=== PATIENT | male | born 1975 | race Caucasian/White ===

== ENCOUNTER → 2018-09-25 08:28 | Outpatient (CLI) | payer OTHER, SELFPAY | PROVIDERS: Family Provider Family Medicine; PCP Student in an Organized Health Care Education/Training Program; Visit Provider Physician Assistant | DX: J02.9 Acute pharyngitis, unspecified (principal) | CPT/HCPCS: 87070 ==

== ENCOUNTER 2018-09-26 16:56 | Emergency (ER) | payer OTHER, SELFPAY ==
--- NOTE | 2018-09-26 17:04 | DI.CT.S_ITS ---
PROCEDURE: CT SOFT TISSUE NECK W CON INDICATIONS: severe upper airway swelling, soft palate edema TECHNIQUE: After the administration of intravenous contrast, 3.0 mm axial sections acquired from the sella to the aortic arch. Additional oblique axial 3.0 mm sections acquired through the pharynx. 3 mm thick coronal and sagittal reformats were generated. For radiation dose reduction, the following was used: automated exposure control. COMPARISON: None. FINDINGS: Image quality: Excellent. Lymph nodes: No enlarged lymph nodes seen throughout the neck by size criteria. Bilateral subcentimeter level II lymph nodes are noted measures up to 7 mm in short axis diameter. Vessels: Visualized vasculature appears patent. Neck spaces: There is diffuse enlargement of parapharyngeal tonsils particularly involving right palatine tonsil with right worse than left bilateral oral pharyngeal and pharyngeal soft tissue swelling and asymmetric right-sided pharyngeal airway narrowing. Ill-defined hypodensities are seen within right parapharyngeal tonsil measures up to 6 x 9 mm in size suggestive of right-sided tonsil abscess. The vocal cords, false vocal cords, pyriform sinuses, epiglottis, vallecula, and tongue base all appear normal. Extramucosal spaces appear unremarkable. Glands: The parotid and submandibular glands appear normal. Thyroid gland is within normal limits. Miscellaneous: Visualized brain and orbits appear normal. Lung apices appear clear. Superficial soft tissues appear normal. Bones: No suspicious bony lesions. Visualized sinuses and mastoids appear unremarkable. IMPRESSION: 1. Findings suggestive of parapharyngeal tonsillitis with small right parapharyngeal tonsil abscess collections. Mild asymmetric right pharyngeal airway narrowing. 2. Rest of the airway is patent. No gross neck soft tissue adenopathy. Dictated by: Luis Manuel Thornton M.D. on 09/26/2018 at 18:30 Approved by: Luis Manuel Thornton M.D. on 09/26/2018 at 18:43
[2018-09-26 17:19] VITALS: BP 138/95; PULSE 73; RESP 18; TEMP 37.1; O2SAT 99
[2018-09-26 17:24] LABS: Add Manual Diff / Slide Review NO; Basophils Percent Auto 0.3 % (0-2); Eosinophils Percent Auto 0.5 % (2-4); Hematocrit 45.7 % (41-53); Hemoglobin 15.2 g/dL (13.5-17.5); Lymphocytes Percent Auto 15.8 % (25-40); Mean Corpuscular HGB Conc 33.3 % (30-36); Mean Corpuscular Hemoglobin 32.2 PG (26-34); Mean Corpuscular Volume 96.6 fL (80-100); Monocytes Percent Auto 8.4 % (3-14); Neutrophils Absolute Auto 10200 /uL (3000-5900); Platelet Count 269 X10^3/uL (150-400); Red Blood Cell Count 4.74 X10^6/uL (4.5-5.9); White Blood Cell Count 13.6 X10^3/uL (4.5-11.0)
--- NOTE | 2018-09-26 17:25 | ED.GENADULT ---
HPI - General Adult General Stated complaint: THROAT PROBLEM HARD TIME BREATHING Time Seen by Provider: 09/26/18 16:58 Source: patient Mode of arrival: ambulatory Limitations: no limitations History of Present Illness HPI narrative: 43-year-old smoking male presents from walk-in clinic for evaluation of worsening throat problem. The patient had a sore throat and went to the walk-in clinic yesterday and had a negative strep test. He was discharged home on symptomatic treatment and continued to worsen. This afternoon the patient started developing significant difficulty with swallowing and trouble controlling his secretions. He has a loss of voice and denies other symptoms such as runny nose or cough. Denies any fever nor nausea or vomiting. He takes no antihypertensives and denies any history of the same. Onset (ago): hour(s) Severity: severe Associated symptoms: shortness of breath Treatments prior to arrival: cold therapy Related Data Previous Rx's Medication Instructions Recorded amoxicillin-pot clavulanate 1 tab PO BID #20 tab 09/26/18 [Augmentin] Review of Systems Review of Systems All systems reviewed & are unremarkable except as noted in HPI and below Constitutional Denies chills, Denies fever(s), Denies lethargy and Denies weakness Eyes Denies change in vision, Denies eye discharge, Denies irritation and Denies loss of vision ENT Ears, Nose, Mouth, and Throat: Denies change in voice, Reports neck pain, Reports sore throat and Reports throat swelling Cardiovascular Denies chest pain, Denies irregular heart rhythm, Denies lightheadedness, Denies palpitations, Reports dyspnea, Denies dyspnea on exertion and Denies orthopnea Respiratory Denies cough, Reports dyspnea, Denies dyspnea on exertion and Denies wheezing Gastrointestinal Gastrointestinal: Denies abdominal pain, Denies change in bowel habits, Denies diarrhea, Denies nausea and Denies vomiting Genitourinary Denies hematuria, Denies flank pain, Denies urinary incontinence and Denies urinary urgency Musculoskeletal Reports neck pain Integumentary/Breasts Denies pruritus, Denies erythema, Denies rash and Denies wounds Neurologic Denies confusion, Denies loss of vision and Denies weakness Psychiatric Denies anxiety, Denies confusion, Denies depression, Denies homicidal ideation and Denies suicidal ideation Endocrine Denies palpitations Hematologic/Lymphatic Denies easy bruising Allergic/Immunologic Reports throat swelling and Denies wheezing PFSH Social History Smoking Status: Current every day smoker Exam Narrative Exam Narrative: 43-year-old male obvious distress with change in voice, and trouble swallowing Initial Vital Signs Initial Vital Signs: Vital Signs Temperature 98.8 F 09/26/18 17:19 Pulse Rate 73 09/26/18 17:19 Respiratory Rate 18 09/26/18 17:19 Blood Pressure 138/95 H 09/26/18 17:19 Pulse Oximetry 99 09/26/18 17:19 Const General: cooperative and well developed Nutritional Appearance: well nourished Orientation: alert, awake, oriented x3 and not confused HENMT Head: normocephalic and atraumatic Ears: external ears normal and TM's normal bilaterally Nose: external nose normal and No nasal discharge Face and sinus: sinuses nontender, face symmetric, no sinus tenderness and No dry mucous membranes Mouth: oral mucosae normal and moist mucous membranes Teeth and gingiva: dentition normal Throat: other (patient has posterior pharynx swelling, R>L, patent airway) Eyes General: appearance normal, both eyes and all related structures Eyelids: eyelids normal Conjunctivae: conjunctivae normal Sclera: sclerae normal Pupils: PERRL EOM: EOM intact bilaterally Neck Neck: normal visual inspection, trachea midline, lymphadenopathy, No midline deformity and No JVD Lymphatic: No lymphedema Chest Chest: normal inspection of the chest Cardio Rate: regular rate Rhythm: regular rhythm Heart Sounds: no click, no gallops, no murmurs and no rubs Pulses: normal peripheral pulses Back/Spine/Pelvis Back: No CVA tenderness Cervical Spine: cervical ROM normal and No pain with cervical ROM Thoracic/Lumbar Spine: thoracic and lumbar spine normal to inspection Neuro General: alert, oriented x3, gait normal and no focal motor deficits Speech: speech normal Extrem General: full ROM, no clubbing, cyanosis or edema, no pedal edema and no calf tenderness Course Orders Ordered: ED Orders 09/26/18 17:04 CT soft tissue neck w con Stat 09/26/18 17:10 Basic Metabolic Panel Stat Complete Blood Count AUTO DIFF Stat Lactate (Lactic Acid) Stat Procalcitonin Stat 09/26/18 17:27 Blood Culture Stat Discontinued Medications Dexamethasone 20 mg/ Sodium (Chloride) 52 mls @ 208 mls/hr IV NOW ONE Stop: 09/26/18 17:05 Last Infusion: 09/26/18 18:03 Dose: 0 mls/hr Admin: 09/26/18 17:28 Dose: 208 mls/hr Sodium Chloride (Normal Saline 0.9%) 1,000 mls @ 1,000 mls/hr IV BOLUS ONE Stop: 09/26/18 18:03 Last Admin: 09/26/18 17:28 Dose: 1,000 mls/hr Ampicillin Sodium/Sulbactam (Sodium 3 gm/ Sodium Chloride) 100 mls @ 100 mls/hr IV NOW ONE Stop: 09/26/18 17:05 Last Infusion: 09/26/18 19:21 Dose: 0 mls/hr Admin: 09/26/18 18:02 Dose: 100 mls/hr Reevaluation(s) Reevaluation #1: Patient is feeling better after above therapies. He is controlling his secretions more appropriately and feeling lessAngst. He is speaking much more clearly Vital Signs - 8 hr 09/26/18 17:19 Temperature 98.8 F Pulse Rate 73 Respiratory Rate 18 Blood Pressure 138/95 H Pulse Oximetry 99 Medical Decision Making Medical Records Medical records reviewed: Yes I reviewed the patient's medical records. Lab Data Lab results reviewed: Yes I reviewed the patient's lab results. Result diagrams: 09/26/18 17:10 09/26/18 17:10 Lab Results 09/26/18 09/26/18 09/26/18 Range/Units 17:10 17:10 17:10 WBC 13.6 H (4.5-11.0) X10^3/uL RBC 4.74 (4.5-5.9) X10^6/uL Hgb 15.2 (13.5-17.5) g/dL Hct 45.7 (41-53) % MCV 96.6 (80-100) fL MCH 32.2 (26-34) PG MCHC 33.3 (30-36) % RDW 13.0 (11.6-14.8) % Plt Count 269 (150-400) X10^3/uL Neut % (Auto) 75.0 (50-75) % Lymph % (Auto) 15.8 L (25-40) % [place] % (Auto) 8.4 (3-14) % Eos % (Auto) 0.5 L (2-4) % Baso % (Auto) 0.3 (0-2) % Neut # (Auto) 22398 H (9160-0580) /uL Sodium 145 (137-145) mmol/L Potassium 3.7 (3.4-5.1) mmol/L Chloride 102 (98-107) mmol/L Carbon Dioxide 28 (22-32) mmol/L BUN 16 (9-20) mg/dL Creatinine 0.90 (0.66-1.25) mg/dL Estimated GFR > 60.0 (>60) mL/min BUN/Creatinine Ratio 17.8 (6-22) Glucose 92 (70-100) mg/dL Lactate 1.2 (0.7-2.1) mmol/L Calcium 9.4 (8.4-10.2) mg/dL Procalcitonin (<0.5) ng/mL 09/26/18 Range/Units 17:10 WBC (4.5-11.0) X10^3/uL RBC (4.5-5.9) X10^6/uL Hgb (13.5-17.5) g/dL Hct (41-53) % MCV (80-100) fL MCH (26-34) PG MCHC (30-36) % RDW (11.6-14.8) % Plt Count (150-400) X10^3/uL Neut % (Auto) (50-75) % Lymph % (Auto) (25-40) % [place] % (Auto) (3-14) % Eos % (Auto) (2-4) % Baso % (Auto) (0-2) % Neut # (Auto) (7996-9276) /uL Sodium (137-145) mmol/L Potassium (3.4-5.1) mmol/L Chloride (98-107) mmol/L Carbon Dioxide (22-32) mmol/L BUN (9-20) mg/dL Creatinine (0.66-1.25) mg/dL Estimated GFR (>60) mL/min BUN/Creatinine Ratio (6-22) Glucose (70-100) mg/dL Lactate (0.7-2.1) mmol/L Calcium (8.4-10.2) mg/dL Procalcitonin < 0.05 (<0.5) ng/mL Imaging Data Soft Tissue Neck CT: Radiologist's impression: [address] [address] [address] Scan Report Signed Patient: AGUS VILLAGRAN#: [id number] : 1975Acct:[id number] Age/Sex: 43 / MDate of Service: 09/26/18 Loc: ED Accession Number: [id number] Procedure: CT soft tissue neck w con Ordering Provider: Mir Norris D.O. PROCEDURE: CT SOFT TISSUE NECK W CON INDICATIONS: severe upper airway swelling, soft palate edema TECHNIQUE: After the administration of intravenous contrast, 3.0 mm axial sections acquired from the sella to the aortic arch. Additional oblique axial 3.0 mm sections acquired through the pharynx. 3 mm thick coronal and sagittal reformats were generated. For radiation dose reduction, the following was used: automated exposure control. COMPARISON: None. FINDINGS: Image quality: Excellent. Lymph nodes: No enlarged lymph nodes seen throughout the neck by size criteria. Bilateral subcentimeter level II lymph nodes are noted measures up to 7 mm in short axis diameter. Vessels: Visualized vasculature appears patent. Neck spaces: There is diffuse enlargement of parapharyngeal tonsils particularly involving right palatine tonsil with right worse than left bilateral oral pharyngeal and pharyngeal soft tissue swelling and asymmetric right-sided pharyngeal airway narrowing. Ill-defined hypodensities are seen within right parapharyngeal tonsil measures up to 6 x 9 mm in size suggestive of right-sided tonsil abscess. The vocal cords, false vocal cords, pyriform sinuses, epiglottis, vallecula, and tongue base all appear normal. Extramucosal spaces appear unremarkable. Glands: The parotid and submandibular glands appear normal. Thyroid gland is within normal limits. Miscellaneous: Visualized brain and orbits appear normal. Lung apices appear clear. Superficial soft tissues appear normal. Bones: No suspicious bony lesions. Visualized sinuses and mastoids appear unremarkable. IMPRESSION: 1. Findings suggestive of parapharyngeal tonsillitis with small right parapharyngeal tonsil abscess collections. Mild asymmetric right pharyngeal airway narrowing. 2. Rest of the airway is patent. No gross neck soft tissue adenopathy. Dictated by: Luis Manuel Thornton M.D. on 09/26/2018 at 18:30 Approved by: Luis Manuel Thornton M.D. on 09/26/2018 at 18:43 [facility] Narrative Medical decision making narrative: 43-year-old otherwise healthy male presents for evaluation difficulty swallowing with possible airway compromise. On exam he has a patent airway and is largely controlling his secretions. CT shows a small peritonsillar abscess with patent airways. Patient feels better after above-stated therapies. He will follow up closely with her Nose and Throat, calling Saturday morning and has full understanding of return precautions and has verbalized this understanding Discharge Plan Departure Patient Disposition: Home Clinical Impression: Abscess, peritonsillar Instructions: DI for Peritonsillar Abscess -- Adult Activity Restrictions/Additional Instructions: *You have been diagnosed with [ acute peritonsillar abscess ] *What to do: *Take medications as directed *Follow up with ear nose and throat, call for an appointment 1st thing on Saturday. Let them know you were seen in the Emergency Department and that we ask that you be seen in follow up *Return to ER if you should have any new, worsening or concerning symptoms, such as [worsening breathing, inability to eat or drink, inability to swallow pills, other bothersome symptoms ] Prescriptions: New amoxicillin-pot clavulanate [Augmentin] 875-125 mg tablet 1 tab PO BID Qty: 20 RF: 0 Referrals: Jose F Ojeda MD [Physician] -
[2018-09-26] MEDS: SODIUM CHLORIDE 0.9% 1,000 ML 1000 ML IV (17:28)
[2018-09-26] MEDS: DEXAMETHASONE 20 MG in SODIUM CHLORIDE 0.9% 50 ML 208 ML IV (17:28)
--- NOTE | 2018-09-26 17:30 | ED_ITS ---
HPI - General Adult General Stated complaint: THROAT PROBLEM HARD TIME BREATHING Time Seen by Provider: 09/26/18 16:58 Source: patient Mode of arrival: ambulatory Limitations: no limitations History of Present Illness HPI narrative: 43-year-old smoking male presents from walk-in clinic for evaluation of worsening throat problem. The patient had a sore throat and went to the walk-in clinic yesterday and had a negative strep test. He was discharged home on symptomatic treatment and continued to worsen. This afternoon the patient started developing significant difficulty with swallowing and trouble controlling his secretions. He has a loss of voice and denies other symptoms such as runny nose or cough. Denies any fever nor nausea or vomiting. He takes no antihypertensives and denies any history of the same. Onset (ago): hour(s) Severity: severe Associated symptoms: shortness of breath Treatments prior to arrival: cold therapy Related Data Previous Rx's Medication Instructions Recorded amoxicillin-pot clavulanate 1 tab PO BID #20 tab 09/26/18 [Augmentin] Review of Systems Review of Systems All systems reviewed & are unremarkable except as noted in HPI and below Constitutional Denies chills, Denies fever(s), Denies lethargy and Denies weakness Eyes Denies change in vision, Denies eye discharge, Denies irritation and Denies loss of vision ENT Ears, Nose, Mouth, and Throat: Denies change in voice, Reports neck pain, Reports sore throat and Reports throat swelling Cardiovascular Denies chest pain, Denies irregular heart rhythm, Denies lightheadedness, Denies palpitations, Reports dyspnea, Denies dyspnea on exertion and Denies orthopnea Respiratory Denies cough, Reports dyspnea, Denies dyspnea on exertion and Denies wheezing Gastrointestinal Gastrointestinal: Denies abdominal pain, Denies change in bowel habits, Denies diarrhea, Denies nausea and Denies vomiting Genitourinary Denies hematuria, Denies flank pain, Denies urinary incontinence and Denies urinary urgency Musculoskeletal Reports neck pain Integumentary/Breasts Denies pruritus, Denies erythema, Denies rash and Denies wounds Neurologic Denies confusion, Denies loss of vision and Denies weakness Psychiatric Denies anxiety, Denies confusion, Denies depression, Denies homicidal ideation and Denies suicidal ideation Endocrine Denies palpitations Hematologic/Lymphatic Denies easy bruising Allergic/Immunologic Reports throat swelling and Denies wheezing PFSH Social History Smoking Status: Current every day smoker Exam Narrative Exam Narrative: 43-year-old male obvious distress with change in voice, and trouble swallowing Initial Vital Signs Initial Vital Signs: Vital Signs Temperature 98.8 F 09/26/18 17:19 Pulse Rate 73 09/26/18 17:19 Respiratory Rate 18 09/26/18 17:19 Blood Pressure 138/95 H 09/26/18 17:19 Pulse Oximetry 99 09/26/18 17:19 Const General: cooperative and well developed Nutritional Appearance: well nourished Orientation: alert, awake, oriented x3 and not confused HENMT Head: normocephalic and atraumatic Ears: external ears normal and TM's normal bilaterally Nose: external nose normal and No nasal discharge Face and sinus: sinuses nontender, face symmetric, no sinus tenderness and No dry mucous membranes Mouth: oral mucosae normal and moist mucous membranes Teeth and gingiva: dentition normal Throat: other (patient has posterior pharynx swelling, R>L, patent airway) Eyes General: appearance normal, both eyes and all related structures Eyelids: eyelids normal Conjunctivae: conjunctivae normal Sclera: sclerae normal Pupils: PERRL EOM: EOM intact bilaterally Neck Neck: normal visual inspection, trachea midline, lymphadenopathy, No midline deformity and No JVD Lymphatic: No lymphedema Chest Chest: normal inspection of the chest Cardio Rate: regular rate Rhythm: regular rhythm Heart Sounds: no click, no gallops, no murmurs and no rubs Pulses: normal peripheral pulses Back/Spine/Pelvis Back: No CVA tenderness Cervical Spine: cervical ROM normal and No pain with cervical ROM Thoracic/Lumbar Spine: thoracic and lumbar spine normal to inspection Neuro General: alert, oriented x3, gait normal and no focal motor deficits Speech: speech normal Extrem General: full ROM, no clubbing, cyanosis or edema, no pedal edema and no calf tenderness Course Orders Ordered: ED Orders 09/26/18 17:04 CT soft tissue neck w con Stat 09/26/18 17:10 Basic Metabolic Panel Stat Complete Blood Count AUTO DIFF Stat Lactate (Lactic Acid) Stat Procalcitonin Stat 09/26/18 17:27 Blood Culture Stat Discontinued Medications Dexamethasone 20 mg/ Sodium (Chloride) 52 mls @ 208 mls/hr IV NOW ONE Stop: 09/26/18 17:05 Last Infusion: 09/26/18 18:03 Dose: 0 mls/hr Admin: 09/26/18 17:28 Dose: 208 mls/hr Sodium Chloride (Normal Saline 0.9%) 1,000 mls @ 1,000 mls/hr IV BOLUS ONE Stop: 09/26/18 18:03 Last Admin: 09/26/18 17:28 Dose: 1,000 mls/hr Ampicillin Sodium/Sulbactam (Sodium 3 gm/ Sodium Chloride) 100 mls @ 100 mls/ hr IV NOW ONE Stop: 09/26/18 17:05 Last Infusion: 09/26/18 19:21 Dose: 0 mls/hr Admin: 09/26/18 18:02 Dose: 100 mls/hr Reevaluation(s) Reevaluation #1: Patient is feeling better after above therapies. He is controlling his secretions more appropriately and feeling lessAngst. He is speaking much more clearly Vital Signs - 8 hr 09/26/18 17:19 Temperature 98.8 F Pulse Rate 73 Respiratory Rate 18 Blood Pressure 138/95 H Pulse Oximetry 99 Medical Decision Making Medical Records Medical records reviewed: Yes I reviewed the patient's medical records. Lab Data Lab results reviewed: Yes I reviewed the patient's lab results. Result diagrams: 09/26/18 17:10 09/26/18 17:10 Lab Results 09/26/18 09/26/18 09/26/18 Range/Units 17:10 17:10 17:10 WBC 13.6 H (4.5-11.0) X10^3/uL RBC 4.74 (4.5-5.9) X10^6/uL Hgb 15.2 (13.5-17.5) g/dL Hct 45.7 (41-53) % MCV 96.6 (80-100) fL MCH 32.2 (26-34) PG MCHC 33.3 (30-36) % RDW 13.0 (11.6-14.8) % Plt Count 269 (150-400) X10^3/uL Neut % (Auto) 75.0 (50-75) % Lymph % (Auto) 15.8 L (25-40) % [place] % (Auto) 8.4 (3-14) % Eos % (Auto) 0.5 L (2-4) % Baso % (Auto) 0.3 (0-2) % Neut # (Auto) 88052 H (7724-9858) /uL Sodium 145 (137-145) mmol/L Potassium 3.7 (3.4-5.1) mmol/L Chloride 102 (98-107) mmol/L Carbon Dioxide 28 (22-32) mmol/L BUN 16 (9-20) mg/dL Creatinine 0.90 (0.66-1.25) mg/dL Estimated GFR > 60.0 (>60) mL/min BUN/Creatinine Ratio 17.8 (6-22) Glucose 92 (70-100) mg/dL Lactate 1.2 (0.7-2.1) mmol/L Calcium 9.4 (8.4-10.2) mg/dL Procalcitonin (<0.5) ng/mL 09/26/18 Range/Units 17:10 WBC (4.5-11.0) X10^3/uL RBC (4.5-5.9) X10^6/uL Hgb (13.5-17.5) g/dL Hct (41-53) % MCV (80-100) fL MCH (26-34) PG MCHC (30-36) % RDW (11.6-14.8) % Plt Count (150-400) X10^3/uL Neut % (Auto) (50-75) % Lymph % (Auto) (25-40) % [place] % (Auto) (3-14) % Eos % (Auto) (2-4) % Baso % (Auto) (0-2) % Neut # (Auto) (0913-3307) /uL Sodium (137-145) mmol/L Potassium (3.4-5.1) mmol/L Chloride (98-107) mmol/L Carbon Dioxide (22-32) mmol/L BUN (9-20) mg/dL Creatinine (0.66-1.25) mg/dL Estimated GFR (>60) mL/min BUN/Creatinine Ratio (6-22) Glucose (70-100) mg/dL Lactate (0.7-2.1) mmol/L Calcium (8.4-10.2) mg/dL Procalcitonin < 0.05 (<0.5) ng/mL Imaging Data Soft Tissue Neck CT: Radiologist's impression: [address] [address] [address] Scan Report Signed Patient: AGUS VILLAGRAN#: [id number] : 1975Acct:[id number] Age/Sex: 43 / MDate of Service: 09/26/18 Loc: ED Accession Number: [id number] Procedure: CT soft tissue neck w con Ordering Provider: Mir Norris D.O. PROCEDURE: CT SOFT TISSUE NECK W CON INDICATIONS: severe upper airway swelling, soft palate edema TECHNIQUE: After the administration of intravenous contrast, 3.0 mm axial sections acquired from the sella to the aortic arch. Additional oblique axial 3.0 mm sections acquired through the pharynx. 3 mm thick coronal and sagittal reformats were generated. For radiation dose reduction, the following was used: automated exposure control. COMPARISON: None. FINDINGS: Image quality: Excellent. Lymph nodes: No enlarged lymph nodes seen throughout the neck by size criteria. Bilateral subcentimeter level II lymph nodes are noted measures up to 7 mm in short axis diameter. Vessels: Visualized vasculature appears patent. Neck spaces: There is diffuse enlargement of parapharyngeal tonsils particularly involving right palatine tonsil with right worse than left bilateral oral pharyngeal and pharyngeal soft tissue swelling and asymmetric right-sided pharyngeal airway narrowing. Ill-defined hypodensities are seen within right parapharyngeal tonsil measures up to 6 x 9 mm in size suggestive of right-sided tonsil abscess. The vocal cords, false vocal cords, pyriform sinuses, epiglottis, vallecula, and tongue base all appear normal. Extramucosal spaces appear unremarkable. Glands: The parotid and submandibular glands appear normal. Thyroid gland is within normal limits. Miscellaneous: Visualized brain and orbits appear normal. Lung apices appear clear. Superficial soft tissues appear normal. Bones: No suspicious bony lesions. Visualized sinuses and mastoids appear unremarkable. IMPRESSION: 1. Findings suggestive of parapharyngeal tonsillitis with small right parapharyngeal tonsil abscess collections. Mild asymmetric right pharyngeal airway narrowing. 2. Rest of the airway is patent. No gross neck soft tissue adenopathy. Dictated by: Luis Manuel Thornton M.D. on 09/26/2018 at 18:30 Approved by: Luis Manuel Thornton M.D. on 09/26/2018 at 18:43 [facility] Narrative Medical decision making narrative: 43-year-old otherwise healthy male presents for evaluation difficulty swallowing with possible airway compromise. On exam he has a patent airway and is largely controlling his secretions. CT shows a small peritonsillar abscess with patent airways. Patient feels better after above-stated therapies. He will follow up closely with her Nose and Throat, calling Saturday morning and has full understanding of return precautions and has verbalized this understanding Discharge Plan Departure Patient Disposition: Home Clinical Impression: Abscess, peritonsillar Instructions: DI for Peritonsillar Abscess -- Adult Activity Restrictions/Additional Instructions: *You have been diagnosed with [ acute peritonsillar abscess ] *What to do: *Take medications as directed *Follow up with ear nose and throat, call for an appointment 1st thing on Saturday. Let them know you were seen in the Emergency Department and that we ask that you be seen in follow up *Return to ER if you should have any new, worsening or concerning symptoms , such as [worsening breathing, inability to eat or drink, inability to swallow pills, other bothersome symptoms ] Prescriptions: New amoxicillin-pot clavulanate [Augmentin] 875-125 mg tablet 1 tab PO BID Qty: 20 RF: 0 Referrals: Jose F Ojeda MD [Physician] -
[2018-09-26 17:39] LABS: BUN Creatinine Ratio 17.8 (6-22); Blood Urea Nitrogen 16 mg/dL (9-20); Calcium 9.4 mg/dL (8.4-10.2); Carbon Dioxide 28 mmol/L (22-32); Chloride 102 mmol/L (98-107); Estimated Glomerular Filt Rate > 60.0 mL/min (>60); Glucose 92 mg/dL (70-100); HEMOLYSIS 21 (0-50); Potassium 3.7 mmol/L (3.4-5.1); Sodium 145 mmol/L (137-145)
[2018-09-26 17:47] LABS: Lactate (Lactic Acid) 1.2 mmol/L (0.7-2.1)
[2018-09-26 17:56] LABS: Procalcitonin < 0.05 ng/mL (<0.5)
[2018-09-26] MEDS: AMPICILLIN/SULBACTAM 3 GM 3 GM in SODIUM CHLORIDE 0.9% 100 ML IV (18:02)
[2018-09-26 19:48] VITALS: BP 129/83; PULSE 64; RESP 18; O2SAT 97
[2018-09-26 20:20] VITALS: BP 138/82; PULSE 72; RESP 18; O2SAT 99
== END 2018-09-26 20:20 | disposition home or self-care (01) ==
PROVIDERS: Emergency Provider Emergency Medicine
DX: J36 Peritonsillar abscess (principal)
CPT/HCPCS: 36415; 36591; 70491; 80048; 83605; 84145; 85025; 87040; 96361; 96365; 96366; 99283; 99285; J0295; J1100; Q9967

== ENCOUNTER 2018-09-28 09:56 | Emergency (ER) | payer OTHER, SELFPAY ==
[2018-09-28 10:07] VITALS: BP 129/86; PULSE 69; RESP 18; TEMP 36.9; O2SAT 93; BMI 31.5
--- NOTE | 2018-09-28 10:12 | PC.NURSE ---
on arrival , soft spoken but appropriate,spitting out mucous into the bag.
--- NOTE | 2018-09-28 11:00 | ED_ITS ---
HPI - URI/Sore Throat General Chief Complaint: Upper Respiratory Symptoms Stated Complaint: ABSCESS IN THROAT Time Seen by Provider: 09/28/18 10:30 Source: patient Mode of arrival: ambulatory Limitations: no limitations History of Present Illness HPI Narrative: The patient is a 43-year-old male with known peritonsillar abscess. He was seen twice last week by the walk-in clinic and on Saturday in the emergency department. He had his IV fluids dexamethasone and antibiotics. He said yesterday he was doing fine. However today he feels like he is spitting the as he can't swallow and hurts. He is able to speak to me at ease of without difficulty. He has not had fever or chills. He has been taking his antibiotics. He had apple sauce and yogurt today but then started having pain. Related Data Previous Rx's Medication Instructions Recorded triamcinolone acetonide [Nasacort] 2 puff INTRANASAL Q DAY #1 bot 09/28/16 beclomethasone dipropionate [Qvar] 1 puff INH BID #1 inh 07/24/17 prednisone 50 mg PO DAILY #5 tab 09/28/18 Allergies Allergy/AdvReac Type Severity Reaction Status Date / Time No Known Allergies Allergy Uncoded 09/26/18 16:33 Review of Systems Review of Systems All systems reviewed & are unremarkable except as noted in HPI and below Constitutional Denies chills, Denies fatigue, Denies fever(s) and Denies frequent falls ENT Ears, Nose, Mouth, and Throat: Reports system reviewed and no additional complaints, except as docu, Reports as per HPI and Denies dizziness Gastrointestinal Gastrointestinal: Denies abdominal pain, Denies change in bowel habits, Denies diarrhea, Denies nausea and Denies vomiting Musculoskeletal Denies numbness Integumentary/Breasts Denies pruritus, Denies erythema, Denies rash and Denies wounds Neurologic Denies behavioral changes, Denies confusion, Denies dizziness, Denies frequent falls and Denies numbness Psychiatric Denies behavioral changes and Denies confusion Endocrine Denies fatigue PFS Social History Smoking Status: Current every day smoker alcohol intake: current Exam Initial Vital Signs Initial Vital Signs: Vital Signs Temperature 98.4 F 09/28/18 10:07 Pulse Rate 69 09/28/18 10:07 Respiratory Rate 18 09/28/18 10:07 Blood Pressure 129/86 09/28/18 10:07 Pulse Oximetry 93 09/28/18 10:07 GENERAL: Well-appearing, well-nourished and in no acute distress. HEENT: Head atraumatic,EOMI, pupils reactive, face symmetric, moist mucous membranes PHARYNX: Pharynx is erythematous no uvula deviation no significant hard palate swelling. Airway is patent. No stridor CARDIOVASCULAR: Regular rate and rhythm without murmurs, rubs or gallops. RESPIRATORY: Breath sounds equal bilaterally, no wheezes rales or rhonchi. ABDOMEN: Soft, nontender. Normoactive bowel sounds all 4 quadrants. No guarding or rebound. EXTREMITIES: Normal range of motion, no clubbing or edema. Neurovascularly intact NEUROLOGICAL: Alert and oriented x4.Normal gait and speech. Cranial nerves II through XII grossly intact. SKIN: Warm, dry, no laceration, no petechiae, no rashes or lesions. Course Orders Ordered: ED Orders 09/28/18 10:45 Basic Metabolic Panel Stat Complete Blood Count AUTO DIFF Stat Discontinued Medications Ampicillin Sodium/Sulbactam (Sodium 3 gm/ Sodium Chloride) 100 mls @ 100 mls/ hr IV NOW ONE Stop: 09/28/18 10:57 Last Infusion: 09/28/18 13:09 Dose: 0 mls/hr Admin: 09/28/18 11:55 Dose: 100 mls/hr Dexamethasone 20 mg/ Sodium (Chloride) 55 mls @ 220 mls/hr IV NOW ONE Stop: 09/28/18 10:57 Last Infusion: 09/28/18 11:45 Dose: 0 mls/hr Admin: 09/28/18 11:26 Dose: 220 mls/hr Sodium Chloride (Normal Saline 0.9%) 1,000 mls @ 1,000 mls/hr IV BOLUS ONE Stop: 09/28/18 11:55 Last Infusion: 09/28/18 13:09 Dose: 1,000 mls/hr Admin: 09/28/18 11:26 Dose: 1,000 mls/hr Vital Signs - 8 hr 09/28/18 10:07 09/28/18 11:42 09/28/18 13:10 Temperature 98.4 F 97.2 F L Pulse Rate 69 59 L 69 Respiratory Rate 18 17 17 Blood Pressure 129/86 118/78 Blood Pressure [Left Arm] 144/83 H Pulse Oximetry 93 97 99 09/28/18 13:12 Temperature 97.8 F Pulse Rate 69 Respiratory Rate 17 Blood Pressure Blood Pressure [Left Arm] 118/78 Pulse Oximetry 99 MDM - URI/Sore Throat Medical Records Attestation: I reviewed the patient's medical records. Patient actually has 3 medical record numbers over the last 1 week. They have not yet been done by. I did review all of them. His CT does show a 6 x 9 mm peritonsillar abscess Lab Data Attestation: I reviewed the patient's lab results. Result diagrams: 09/28/18 10:45 09/28/18 10:45 Lab Results 09/28/18 09/28/18 Range/Units 10:45 10:45 WBC 14.9 H (4.5-11.0) X10^3/uL RBC 4.37 L (4.5-5.9) X10^6/uL Hgb 14.2 (13.5-17.5) g/dL Hct 42.1 (41-53) % MCV 96.2 (80-100) fL MCH 32.5 (26-34) PG MCHC 33.8 (30-36) % RDW 13.2 (11.6-14.8) % Plt Count 286 (150-400) X10^3/uL Neut % (Auto) 72.5 (50-75) % Lymph % (Auto) 17.3 L (25-40) % [place] % (Auto) 9.5 (3-14) % Eos % (Auto) 0.5 L (2-4) % Baso % (Auto) 0.2 (0-2) % Neut # (Auto) 37361 H (6092-6361) /uL Sodium 145 (137-145) mmol/L Potassium 3.8 (3.4-5.1) mmol/L Chloride 103 (98-107) mmol/L Carbon Dioxide 26 (22-32) mmol/L BUN 19 (9-20) mg/dL Creatinine 0.90 (0.66-1.25) mg/dL Estimated GFR > 60.0 (>60) mL/min BUN/Creatinine Ratio 21.1 (6-22) Glucose 93 (70-100) mg/dL Calcium 9.3 (8.4-10.2) mg/dL MDM Narrative Medical decision making narrative: Patient is able to swallow it is just painful. He is able to stand and walk without difficulty. I spoke with Dr. Ojeda, ENT in regards to patient's symptoms and test results. Understands that I do not see anything for drainage. This is his 2nd ED visit over the weekend for the same. He agrees to see patient in the clinic this week. Recommends prednisone at discharge. Discharge Plan Departure Patient Disposition: Home Clinical Impression: Peritonsillar cellulitis Discharge Date/Time: 09/28/18 13:11 Interventions: ED Discharge Assessment Last Done: 09/28/18 13:10 Instructions: DI for Peritonsillar Abscess -- Adult Activity Restrictions/Additional Instructions: *You have been diagnosed with peritonsillar abscess *What to do: Increase fluid intake *Continue to take medications as directed -prednisone at 50 mg once a day for 5 days-start tomorrow *Follow up with your primary care provider in 2-3 days, call Dr. Ojeda is office tomorrow to schedule follow-up appointment. I did discuss your case with him today. *Return to ER if you should have inability to swallow, difficulty breathing or any new, worsening or concerning symptoms Prescriptions: New prednisone 50 mg tablet 50 mg PO DAILY Qty: 5 RF: 0 No Action triamcinolone acetonide [Nasacort] 55 MCG/PUFF aerosol,spray 2 puff Intranasal Q DAY Qty: 1 RF: 5 beclomethasone dipropionate [Qvar] 80 MCG/PUFF aerosol 1 puff INH BID Qty: 1 RF: 5 Referrals: Luke Dexter MD [Primary Care Provider] - Jose F Ojeda MD [Physician] -
[2018-09-28 11:09] LABS: Add Manual Diff / Slide Review NO; Basophils Percent Auto 0.2 % (0-2); Eosinophils Percent Auto 0.5 % (2-4); Hematocrit 42.1 % (41-53); Hemoglobin 14.2 g/dL (13.5-17.5); Lymphocytes Percent Auto 17.3 % (25-40); Mean Corpuscular HGB Conc 33.8 % (30-36); Mean Corpuscular Hemoglobin 32.5 PG (26-34); Mean Corpuscular Volume 96.2 fL (80-100); Monocytes Percent Auto 9.5 % (3-14); Neutrophils Absolute Auto 10800 /uL (3000-5900); Neutrophils Percent Auto 72.5 % (50-75); Platelet Count 286 X10^3/uL (150-400); Red Blood Cell Count 4.37 X10^6/uL (4.5-5.9); Red Cell Distribution Width 13.2 % (11.6-14.8); White Blood Cell Count 14.9 X10^3/uL (4.5-11.0)
[2018-09-28 11:12] LABS: BUN Creatinine Ratio 21.1 (6-22); Blood Urea Nitrogen 19 mg/dL (9-20); Calcium 9.3 mg/dL (8.4-10.2); Carbon Dioxide 26 mmol/L (22-32); Chloride 103 mmol/L (98-107); Estimated Glomerular Filt Rate > 60.0 mL/min (>60); Glucose 93 mg/dL (70-100); HEMOLYSIS < 15 (0-50); Potassium 3.8 mmol/L (3.4-5.1); Sodium 145 mmol/L (137-145)
[2018-09-28] MEDS: DEXAMETHASONE 20 MG in SODIUM CHLORIDE 0.9% 50 ML 220 ML IV (11:26)
[2018-09-28] MEDS: SODIUM CHLORIDE 0.9% 1,000 ML 1000 ML IV (11:26)
[2018-09-28 11:42] VITALS: BP 144/83; PULSE 59; RESP 17; O2SAT 97
[2018-09-28] MEDS: AMPICILLIN/SULBACTAM 3 GM 3 GM in SODIUM CHLORIDE 0.9% 100 ML IV (11:55)
[2018-09-28 13:10] VITALS: BP 118/78; PULSE 69; RESP 17; TEMP 36.2; O2SAT 99
[2018-09-28 13:12] VITALS: BP 118/78; PULSE 69; RESP 17; TEMP 36.6; O2SAT 99
== END 2018-09-28 13:11 | disposition home or self-care (01) ==
PROVIDERS: Emergency Provider Emergency Medicine; PCP Student in an Organized Health Care Education/Training Program
DX: J36 Peritonsillar abscess (principal)
CPT/HCPCS: 80048; 85025; 96365; 96366; 99283; 99284; J0295; J1100

== ENCOUNTER → 2019-08-10 10:26 | Outpatient (CLI) | payer OTHER, SELFPAY ==
--- NOTE | 2019-08-10 10:28 | DI.RAD.S_ITS ---
PROCEDURE: XR CHEST 2V INDICATIONS: cough for over 1 month TECHNIQUE: 2 views of the chest were acquired. COMPARISON: [facility], , CHEST 2 VIEW, 08/19/2015, 8:58. FINDINGS: Surgical changes and devices: None. Lungs and pleura: Lungs are clear. No pleural effusions or pneumothorax. Mediastinum: Mediastinal contours are normal. Heart size is normal. Bones and chest wall: No suspicious bony abnormalities. Soft tissues appear unremarkable. IMPRESSION: Stable chest. No acute cardiopulmonary process is evident. Dictated by: Hua Alexis M.D. on 08/10/2019 at 9:47 Approved by: Hua Alexis M.D. on 08/10/2019 at 9:48
== END ==
PROVIDERS: PCP Student in an Organized Health Care Education/Training Program; Visit Provider Physician Assistant
DX: R05 Cough (principal)
CPT/HCPCS: 71046

== ENCOUNTER → 2019-09-04 12:07 | Outpatient (CLI) | payer OTHER, SELFPAY ==
--- NOTE | 2019-09-04 12:08 | DI.RAD.S_ITS ---
PROCEDURE: XR KNEE RT 3V INDICATIONS: pain, swelling, joint effusion, r/o arthritis TECHNIQUE: 3 views of the knee were acquired. COMPARISON: None. FINDINGS: Bones: No fractures or dislocations. No suspicious bony lesions. Soft tissues: No joint effusion. No suspicious soft tissue calcifications. IMPRESSION: No trauma. A definite joint effusion is not seen on the lateral view. Dictated by: Magen Ogden M.D. on 09/04/2019 at 12:32 Approved by: Magen Ogden M.D. on 09/04/2019 at 12:33
== END ==
PROVIDERS: Family Provider Student in an Organized Health Care Education/Training Program; PCP Student in an Organized Health Care Education/Training Program; Visit Provider Physician Assistant
DX: M25.561 Pain in right knee (principal)
CPT/HCPCS: 73562

== ENCOUNTER → 2019-10-15 06:57 | Outpatient (CLI) | payer OTHER, SELFPAY ==
[2019-10-15 08:05] LABS: Add Manual Diff / Slide Review NO; Basophils Absolute Auto 0 /uL (0-100); Basophils Percent Auto 0.4 % (0-2); Eosinophils Absolute Auto 100 /uL (0-450); Eosinophils Percent Auto 0.6 % (2-4); Hematocrit 41.6 % (41-53); Hemoglobin 14.7 g/dL (13.5-17.5); Lymphocytes Absolute Auto 1800 /uL (1100-4500); Lymphocytes Percent Auto 21.8 % (25-40); Mean Corpuscular HGB Conc 35.5 % (30-36); Mean Corpuscular Hemoglobin 33.4 PG (26-34); Mean Corpuscular Volume 94.3 fL (80-100); Monocytes Absolute Auto 700 /uL (0-900); Monocytes Percent Auto 8.8 % (3-14); Neutrophils Absolute Auto 5600 /uL (1500-7000); Neutrophils Percent Auto 68.4 % (50-75); Platelet Count 287 X10^3/uL (150-400); Red Blood Cell Count 4.41 X10^6/uL (4.5-5.9); Red Cell Distribution Width 12.7 % (11.6-14.8); White Blood Cell Count 8.1 X10^3/uL (4.5-11.0)
[2019-10-15 08:17] LABS: BUN Creatinine Ratio 24.4 (6-22); Blood Urea Nitrogen 22 mg/dL (9-20); Calcium 9.4 mg/dL (8.4-10.2); Carbon Dioxide 28 mmol/L (22-32); Chloride 104 mmol/L (98-107); Estimated Glomerular Filt Rate > 60.0 mL/min (>60); Glucose 103 mg/dL (70-100); HEMOLYSIS < 15 (0-50); Potassium 4.3 mmol/L (3.4-5.1); Sodium 141 mmol/L (137-145)
[2019-10-15 08:21] LABS: C-Reactive Protein Quant < 0.5 mg/dL (<1.0)
[2019-10-15 08:43] LABS: TSH w/ Reflex to FT4 1.48 uIU/mL (0.47-4.68)
[2019-10-15 09:02] LABS: Vitamin B12 663 pg/mL (239-931)
[2019-10-20 13:50] LABS: Testosterone Free 55.1 pg/mL (35.0-155.0); Testosterone Total 380 ng/dL (250-1100)
== END ==
PROVIDERS: PCP Student in an Organized Health Care Education/Training Program; Visit Provider Student in an Organized Health Care Education/Training Program
DX: F17.200 Nicotine dependence, unspecified, uncomplicated (principal); R53.83 Other fatigue
CPT/HCPCS: 36415; 80048; 82607; 84402; 84403; 84443; 85025; 86140

== ENCOUNTER → 2020-01-05 10:54 | Outpatient (CLI) | payer OTHER, SELFPAY ==
--- NOTE | 2020-01-05 10:55 | DI.RAD.S_ITS ---
PROCEDURE: FL BARIUM SWALLOW W SPEECH INDICATIONS: R/o aspiration TECHNIQUE: Examination was conducted in conjunction with speech pathology per standard protocol. In the lateral projection, filming was performed of the patient swallowing. AP projection filming may also be performed with patient swallowing. COMPARISON: None. FINDINGS: Function: The oral preparatory phase appears normal, with proper containment. The subsequent oral propulsive phase, pharyngeal phase, and esophageal phase of swallowing also appear normal with all proffered substances. No laryngotracheal penetration or aspiration. No pathologic vallecular pooling. Morphology: No cricopharyngeal bar is identified. No cervical esophageal webs. No Zenker's diverticulum. No strictures. IMPRESSION: Negative modified barium swallow study with speech pathology. Please see separate speech pathology report for further details. Dictated by: Srinivasa Hurtado M.D. on 01/05/2020 at 13:06 Approved by: Srinivasa Hurtado M.D. on 01/05/2020 at 13:06
--- NOTE | 2020-01-05 12:37 | ST.SWALLOW ---
Visit Care Team Role Provider Type Luke Dexter MD Attending Provider Physician Primary Care Provider Referring Provider Specialty: Internal Medicine Address: [address] [place] [address], [address] [place] [address], [id number] Email: [email or web address] Modified Barium Swallow Study [employer] Modified Barium Swallow Study Start: 01/05/20 12:00 Freq: Status: Active Protocol: Document 01/05/20 12:01 LNK (Rec: 01/05/20 12:34 [id number] [id number]) Modified Barium Swallow Study Total Time Visit Start Time 11:30 Visit Stop Time 11:55 Total Visit Minutes [address] Celestin Reason for Referral recurrent bronchitis r/o aspiration Setting Setting Outpatient Care Patient Information Identification Type Name,Date of Patient History Javier Pabon was seen for a Modified Barium Swallow Study at the referral of Dr. Celestin, his physician. According his records (10/14/19) Javier has a history of of recurrent bronchitis requiring treatment with antibiotics 2-3 times per year. A typical bronchitis exacerbation is characterized by purulent sputum, shortness of breath, wheezing, increase in coughing . Does not have a rescue inhaler. He does endorse twice weekly coughing fits while swallowing water or his own saliva. He noted that these episodes seem to be less frequent lately. Javier has a C-PAP because of sleep apnea. He reported that he recently got a new C-PAP machine that humidifies the air. Subjective Observations Javier was seated in the fluoroscopy chair. The procedure and instructions were provided to Javier, who indicated he understood and agreed to the procedure. Patient Positioning Position View Lateral Imaging Lateral View Textures Administered Trials Presented Thin Liquid via Spoon,Thin Liquid via Cup,Pudding Thick Liquid via Spoon,Regular Textures,Barium Tablet Oral Phase Source: MBSIMP (TM) (C) Bolus Specific Scoring Grid Lip Closure No Impairment (WNL) Tongue Control During Bolus Hold No Impairment (WNL) Bolus Prep/Mastication No Impairment (WNL) Bolus Transport/Lingual Motion No Impairment (WNL) A/P Lingual Propulsion Delay No Oral Residue WFL Residue Clearing WFL Nasal Regurgitation No Pharyngeal Phase Source: MBSIMP (TM) (C) Bolus Specific Scoring Grid Delayed Initiation of Pharyngeal Swallow Yes: Inconsistent premature spillage of thin liquids to valeculla/pyriform sinus Number of Seconds Delayed (seconds) <1.0s Soft Palate Elevation No Impairment (WNL) Tongue Base Strength/Range of Motion WFL Residue Along the Tongue Base No Laryngeal Elevation No Impairment (WNL) Anterior Hyoid Movement No Impairment (WNL) Epiglottic Range of Motion No Impairment (WNL) Vallecular Residue Yes: trace to minimal - cleared with spontaneous 2nd swallow Clearance of Vallecular Residue WFL Laryngeal Vestibular Closure No Impairment (WNL) Pharyngeal Stripping Wave No Impairment (WNL) Posterior Pharyngeal Wall Residue No Upper Esophageal Sphincter Opening No Impairment (WNL) Residue in the Pyriform Sinuses No Pharyngoesophageal Backflow Observed No Additional Pharyngeal Phase Observations Pharyngeal phase of Javier's swallow is WFL. Inconsistent premature spillage of thin liquids may explain coughing with thin liquids. Especially if he is talking while drinking the thin liquids. No penetration into the laryngeal vestibule. No aspiration observed. A/P View Esophageal Observations Esophageal Function Javier did report that he has a history of reflux and that he took medication for it in the past. Currently, he does not use medication for reflux. Javier may need referral to GI. Clinical Impressions Dysphagia Type No Dysphagia observed Patient Appropriate for Therapy No Recommendations Aspiration Precautions Additional Precautions Standard precautions
== END ==
PROVIDERS: PCP Student in an Organized Health Care Education/Training Program; Referring Provider Student in an Organized Health Care Education/Training Program; Visit Provider Student in an Organized Health Care Education/Training Program
DX: J44.9 Chronic obstructive pulmonary disease, unspecified (principal); T17.908A Unspecified foreign body in respiratory tract, part unspecified causing other injury, initial encounter; F17.200 Nicotine dependence, unspecified, uncomplicated
CPT/HCPCS: 74230; 92611

== ENCOUNTER → 2021-10-16 08:22 | Outpatient (CLI) | payer OTHER, SELFPAY ==
[2021-10-16 09:23] LABS: COVID19 -Nasal RAPID Negative (Negative)
== END ==
PROVIDERS: PCP Student in an Organized Health Care Education/Training Program; Referring Provider Nurse Practitioner Family; Visit Provider Nurse Practitioner Family
DX: Z20.822 Contact with and (suspected) exposure to COVID-19 (principal); R05.9 Cough, unspecified; R09.81 Nasal congestion
CPT/HCPCS: 87635

== ENCOUNTER → 2021-11-07 16:20 | Outpatient (CLI) | payer OTHER, SELFPAY ==
[2021-11-07 17:05] LABS: Hematocrit 43.1 % (41-53); Hemoglobin 14.9 g/dL (13.5-17.5); Mean Corpuscular HGB Conc 34.6 % (30-36); Mean Corpuscular Hemoglobin 32.2 PG (26-34); Mean Corpuscular Volume 92.9 fL (80-100); Platelet Count 314 X10^3/uL (150-400); Red Blood Cell Count 4.64 X10^6/uL (4.5-5.9); Red Cell Distribution Width 12.5 % (11.6-14.8); White Blood Cell Count 7.5 X10^3/uL (4.5-11.0)
[2021-11-07 17:06] LABS: Hemoglobin A1C% w Est Avg Glu 5.5 % (4.0-6.0)
[2021-11-07 17:54] LABS: Alanine Aminotransferase 37 IU/L (<50); Albumin 4.9 g/dL (3.5-5.0); Albumin Globulin Ratio 1.5 (1.0-2.8); Alkaline Phosphatase 56 U/L (38-126); Aspartate Aminotransferase 28 IU/L (17-59); Bilirubin Total 0.4 mg/dL (0.2-1.3); Blood Urea Nitrogen 20 mg/dL (9-20); Calcium 9.4 mg/dL (8.4-10.2); Carbon Dioxide 30 mmol/L (22-32); Chloride 102 mmol/L (98-107); Estimated Glomerular Filt Rate > 60.0 mL/min (>60); Globulin 3.2 g/dL (1.7-4.1); Glucose 93 mg/dL (70-100); HEMOLYSIS < 15 (0-50); Potassium 4.1 mmol/L (3.4-5.1); Sodium 140 mmol/L (137-145); Total Protein 8.1 g/dL (6.3-8.2)
[2021-11-07 18:24] LABS: TSH w/ Reflex to FT4 3.08 uIU/mL (0.47-4.68)
[2021-11-07 18:27] LABS: Testosterone 267 ng/dL (132-813)
== END ==
PROVIDERS: PCP Student in an Organized Health Care Education/Training Program; Referring Provider Student in an Organized Health Care Education/Training Program; Visit Provider Student in an Organized Health Care Education/Training Program
DX: G47.33 Obstructive sleep apnea (adult) (pediatric) (principal); J47.9 Bronchiectasis, uncomplicated; E66.9 Obesity, unspecified; J32.9 Chronic sinusitis, unspecified
CPT/HCPCS: 36415; 80053; 83036; 84403; 84443; 85027

== ENCOUNTER → 2022-10-15 07:50 | Outpatient (CLI) | payer OTHER, SELFPAY ==
[2022-10-15 08:38] LABS: Influenza A - CEPHEID Flu A NEGATIVE (NEGATIVE); Influenza B - CEPHEID Flu B NEGATIVE (NEGATIVE); Respiratory Syncytial Virus Negative (Negative)
[2022-10-15 08:43] LABS: COVID-19 CEPHEID 4-PLEX PCR POSITIVE (Negative)
== END ==
PROVIDERS: PCP Student in an Organized Health Care Education/Training Program; Visit Provider Nurse Practitioner Family
DX: R05.9 Cough, unspecified (principal)
CPT/HCPCS: 0241U

== ENCOUNTER → 2023-09-04 18:06 | Outpatient (CLI) | payer OTHER, SELFPAY ==
--- NOTE | 2023-09-04 18:11 | DI.RAD.S_ITS ---
PROCEDURE: XR FINGER LT MIN 2V INDICATIONS: finger pad deep laceration, sutures placed TECHNIQUE: AP hand, 2 views of the 4th finger(s) acquired. COMPARISON: None. FINDINGS: Bones: No fractures or dislocations. No suspicious bony lesions. Soft tissues: No suspicious soft tissue calcifications. IMPRESSION: No acute osseous abnormality. Dictated by: Scottie Mcgee M.D. on 09/04/2023 at 18:44 Approved by: Scottie Mcgee M.D. on 09/04/2023 at 18:45
== END ==
PROVIDERS: PCP Student in an Organized Health Care Education/Training Program; Referring Provider Student in an Organized Health Care Education/Training Program; Visit Provider Student in an Organized Health Care Education/Training Program
DX: S61.219A Laceration without foreign body of unspecified finger without damage to nail, initial encounter (principal)
CPT/HCPCS: 73140

== ENCOUNTER → 2024-01-29 09:13 | Outpatient (CLI) | payer OTHER, SELFPAY ==
[2024-01-29 10:21] LABS: Add Manual Diff / Slide Review NO; Basophils Absolute Auto 0 /uL (0-100); Basophils Percent Auto 0.5 % (0-2); Eosinophils Absolute Auto 100 /uL (0-450); Eosinophils Percent Auto 0.7 % (2-4); Hematocrit 43.8 % (41-53); Hemoglobin 15.2 g/dL (13.5-17.5); Lymphocytes Absolute Auto 1800 /uL (1100-4500); Lymphocytes Percent Auto 24.5 % (25-40); Mean Corpuscular HGB Conc 34.7 % (30-36); Mean Corpuscular Hemoglobin 32.6 PG (26-34); Mean Corpuscular Volume 93.9 fL (80-100); Monocytes Absolute Auto 700 /uL (0-900); Monocytes Percent Auto 8.7 % (3-14); Neutrophils Absolute Auto 4900 /uL (1500-7000); Neutrophils Percent Auto 65.6 % (50-75); Platelet Count 301 X10^3/uL (150-400); Red Blood Cell Count 4.67 X10^6/uL (4.5-5.9); Red Cell Distribution Width 12.7 % (11.6-14.8); White Blood Cell Count 7.5 X10^3/uL (4.5-11.0)
[2024-01-29 10:34] LABS: Alanine Aminotransferase 44 IU/L (<50); Albumin 4.8 g/dL (3.5-5.0); Albumin Globulin Ratio 1.5 (1.0-2.8); Alkaline Phosphatase 61 U/L (38-126); Aspartate Aminotransferase 30 IU/L (17-59); BUN Creatinine Ratio 20.5 (6-22); Bilirubin Total 0.8 mg/dL (0.2-1.3); Blood Urea Nitrogen 18 mg/dL (9-20); Calcium 9.3 mg/dL (8.4-10.2); Carbon Dioxide 28 mmol/L (22-32); Chloride 105 mmol/L (98-107); Cholesterol 158 mg/dL (140-199); Estimated Glomerular Filt Rate > 60 mL/min (>60); Globulin 3.1 g/dL (1.7-4.1); Glucose 109 mg/dL (70-100); HDL Cholesterol 34 mg/dL (40-60); HEMOLYSIS < 15 (0-50); LDL Cholesterol Calculated 63 mg/dL (<100); Sodium 138 mmol/L (137-145); Total Protein 7.9 g/dL (6.3-8.2); Triglycerides 303 mg/dL (35-150)
[2024-01-29 11:04] LABS: TSH w/ Reflex to FT4 2.06 uIU/mL (0.47-4.68)
[2024-01-29 11:06] LABS: Testosterone 294 ng/dL (132-813)
== END ==
PROVIDERS: PCP Family Medicine; Referring Provider Family Medicine; Visit Provider Family Medicine
DX: F17.200 Nicotine dependence, unspecified, uncomplicated (principal); E66.01 Morbid (severe) obesity due to excess calories; G47.33 Obstructive sleep apnea (adult) (pediatric); R53.83 Other fatigue; I10 Essential (primary) hypertension
CPT/HCPCS: 36415; 80053; 80061; 84403; 84443; 85025

== ENCOUNTER → 2025-01-20 07:59 | Outpatient (CLI) | payer BC, SELFPAY ==
--- NOTE | 2025-01-20 08:01 | DI.RAD.S_ITS ---
PROCEDURE: XR ELBOW RT MIN 3V INDICATIONS: Fall-right elbow pain TECHNIQUE: 3 views of the elbow were acquired. COMPARISON: None. FINDINGS AND IMPRESSION: No displaced fracture or dislocation. No significant joint effusion. If there is high concern for occult injury, consider repeat radiography or cross-sectional imaging. Dictated by: Clifford Banda M.D. on 01/20/2025 at 14:37 Approved by: Clifford Banda M.D. on 01/20/2025 at 14:38
== END ==
PROVIDERS: PCP Family Medicine; Referring Provider Nurse Practitioner Family; Visit Provider Nurse Practitioner Family
DX: S59.901A Unspecified injury of right elbow, initial encounter (principal); W19.XXXA Unspecified fall, initial encounter
CPT/HCPCS: 73080

== ENCOUNTER → 2025-02-03 07:09 | Outpatient (CLI) | payer BC, SELFPAY ==
[2025-02-03 07:56] LABS: Hemoglobin A1C% w Est Avg Glu 5.6 % (4.0-6.0)
[2025-02-03 08:02] LABS: Alanine Aminotransferase 38 IU/L (<50); Albumin 4.7 g/dL (3.5-5.0); Albumin Globulin Ratio 1.7 (1.0-2.8); Alkaline Phosphatase 75 U/L (38-126); Aspartate Aminotransferase 26 IU/L (17-59); BUN Creatinine Ratio 17.5 (6-22); Bilirubin Total 0.5 mg/dL (0.2-1.3); Blood Urea Nitrogen 18 mg/dL (9-20); Calcium 9.6 mg/dL (8.4-10.2); Carbon Dioxide 25 mmol/L (22-32); Chloride 102 mmol/L (98-107); Cholesterol 127 mg/dL (140-199); Estimated Glomerular Filt Rate > 60 mL/min (>60); Globulin 2.7 g/dL (1.7-4.1); Glucose 127 mg/dL (70-100); HDL Cholesterol 30 mg/dL (40-60); HEMOLYSIS < 15 (0-50); LDL Cholesterol Calculated 37 mg/dL (<100); Potassium 4.1 mmol/L (3.4-5.1); Sodium 138 mmol/L (137-145); Total Protein 7.4 g/dL (6.3-8.2); Triglycerides 299 mg/dL (35-150)
[2025-02-03 08:33] LABS: Prostate Specific Antigen Scrn 1.34 ng/mL (0.1-4.0)
[2025-02-03 08:50] LABS: HIV 1 & 2 Ab/Ag 4th Gen Combo NEGATIVE (NEGATIVE); Hep C Virus Ab w/Reflex Quant NEGATIVE s/c (NEGATIVE)
== END ==
PROVIDERS: PCP Family Medicine; Referring Provider Family Medicine; Visit Provider Family Medicine
DX: Z12.5 Encounter for screening for malignant neoplasm of prostate (principal); E66.9 Obesity, unspecified; I10 Essential (primary) hypertension; E78.2 Mixed hyperlipidemia; G47.33 Obstructive sleep apnea (adult) (pediatric); Z11.59 Encounter for screening for other viral diseases; Z11.4 Encounter for screening for human immunodeficiency virus [HIV]
CPT/HCPCS: 36415; 80053; 80061; 83036; 86803; 87389; G0103